=== PATIENT | male | born 1985 | race Hispanic/Latino ===

== ENCOUNTER 2020-08-17 07:24 | Emergency (ER) | payer OTHER, SELFPAY ==
[2020-08-17 07:30] VITALS: BP 126/87
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
== END 2020-08-17 11:00 | disposition home or self-care (01) ==
LOC: ED 07:24
DX: S00.03XA Contusion of scalp, initial encounter (principal); S60.212A Contusion of left wrist, initial encounter; Z90.89 Acquired absence of other organs; Z79.899 Other long term (current) drug therapy; V89.2XXA Person injured in unspecified motor-vehicle accident, traffic, initial encounter; Y93.89 Activity, other specified; Y92.488 Other paved roadways as the place of occurrence of the external cause; Y99.8 Other external cause status
CPT/HCPCS: 99283

== ENCOUNTER 2020-10-11 11:06 | Emergency (ER) | payer SELFPAY ==
[2020-10-11 11:29] VITALS: BP 133/85
--- NOTE | 2020-10-11 12:01 | Emergency Department Report ---
ED General Adult HPI - General Chief complaint: Extremity Injury, Upper Stated complaint: FINGER INFECTION Time Seen by Provider: 10/11/20 11:42 Source: patient Mode of arrival: Ambulatory Limitations: No Limitations - History of Present Illness Initial comments: 35-year-old -[place] male patient presents with complaints of right index finger pain and swelling x6 days. 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 He denies any fever/chills/sweats or difficulty moving his finger. He rates his current pain is 8/10 in severity. No other past medical history per patient. -: Gradual - Related Data Previous Rx's Medication Instructions Recorded Last Taken Type Lidocaine [Lidoderm] 1 each TP BID #20 adh..patch 08/17/20 Unknown Rx Ibuprofen [Motrin 800 MG tab] 800 mg PO Q8HR PRN #15 tablet 10/11/20 Unknown Rx Mupirocin [Bactroban 2% OINT] 1 applic TP TID 7 Days #1 tube 10/11/20 Unknown Rx Sulfamethoxazole/Trimethoprim 1 each PO BID 10 Days #20 tablet 10/11/20 Unknown Rx [Bactrim DS TAB] Allergies Allergy/AdvReac Type Severity Reaction Status Date / Time No Known Allergies Allergy Unverified 08/17/20 07:25 ED Review of Systems ROS: Stated complaint: FINGER INFECTION Other details as noted in HPI Constitutional: denies: diaphoresis, fever, malaise Musculoskeletal: joint swelling, arthralgia Skin: change in color Neurological: denies: numbness, paresthesias ED Past Medical Hx - Past Medical History Previous Medical History?: No - Surgical History Additional Surgical History: tonsilectomy - Social History Smoking Status: Never Smoker - Medications Home Medications: Home Medications Medication Instructions Recorded Confirmed Last Taken Type Lidocaine [Lidoderm] 1 each TP BID #20 adh..patch 08/17/20 Unknown Rx Ibuprofen [Motrin 800 MG tab] 800 mg PO Q8HR PRN #15 tablet 10/11/20 Unknown Rx Mupirocin [Bactroban 2% OINT] 1 applic TP TID 7 Days #1 tube 10/11/20 Unknown Rx Sulfamethoxazole/Trimethoprim 1 each PO BID 10 Days #20 tablet 10/11/20 Unknown Rx [Bactrim DS TAB] ED Physical Exam - General Limitations: No Limitations General appearance: alert, in no apparent distress - Head Head exam: Present: atraumatic, normocephalic - Eye Eye exam: Present: normal appearance - Respiratory Respiratory exam: Absent: respiratory distress - Cardiovascular Cardiovascular Exam: Present: regular rate - Extremities Exam Extremities exam: Present: full ROM, other (Paronychia noted at the lateral aspect of the nailbed of the second right digit; normal perfusion and sensation of the finger noted with normal range of motion) - Neurological Exam Neurological exam: Present: alert, oriented X3 - Psychiatric Psychiatric exam: Present: normal affect, normal mood - Skin Skin exam: Present: warm, dry, intact. Absent: rash ED Course Vital Signs 10/11/20 11:27 Temperature 98.6 F Pulse Rate 95 H Respiratory 18 Rate Blood Pressure 133/85 O2 Sat by Pulse 95 Oximetry - I & D Finger Type of Procedure: Simple Site: Right index finger Blade Size: 11 I & D Procedure: betadine prep, sterile drapes applied, sterile dressing applied Progress: 8 cc of lidocaine 1% without epi used to digitally block left index finger. Minimal bleeding occurred. Moderate purulent drainage was obtained from wound. Patient tolerated procedure well without any immediate complications. ED Medical Decision Making - Medical Decision Making 35-year-old -[place] male patient presents with complaints of right index finger pain and swelling x6 days. 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 He denies any fever/chills/sweats or difficulty moving his finger. He rates his current pain is 8/10 in severity. No other past medical history per patient. Paronychia noted and incision and drainage performed without any immediate complications. Will place patient on mupirocin and Bactrim. Recommend warm water soaks. Discussed wound care and signs and symptoms that should prompt immediate return to the emergency department in detail patient verbalized understanding. He is well-appearing, his vitals are within normal limits, he is stable for discharge home. Critical care attestation.: If time is entered above; I have spent that time in minutes in the direct care of this critically ill patient, excluding procedure time. ED Disposition Clinical Impression: Paronychia of finger Disposition: - TO HOME OR SELFCARE Is pt being admited?: No Condition: Stable Instructions: Paronychia, Incision and Drainage Prescriptions: Sulfamethoxazole/Trimethoprim [Bactrim DS TAB] 1 each PO BID 10 Days #20 tablet Mupirocin [Bactroban 2% OINT] 1 applic TP TID 7 Days #1 tube Ibuprofen [Motrin 800 MG tab] 800 mg PO Q8HR PRN #15 tablet PRN Reason: pain Referrals: [facility] [Provider Group] - 3-5 Days
== END 2020-10-11 12:33 | disposition home or self-care (01) ==
LOC: ED 11:06
DX: L03.011 Cellulitis of right finger (principal); Z90.89 Acquired absence of other organs; Z79.899 Other long term (current) drug therapy
CPT/HCPCS: 99282